=== PATIENT | female | born 1995 | race Caucasian/White ===

== ENCOUNTER 2021-04-02 16:22 | Emergency (ER) | payer BC ==
[2021-04-02 16:30] VITALS: RESP 20; TEMP 99
[2021-04-02 17:12] LABS: Basophils % (A) 0 %; Eosinophils # (A) 0.2 k/uL (0-0.7); Eosinophils % (A) 2 %; HCT 33.1 % (34.0-46.0); HGB 11.3 gm/dL (11.4-16.0); Lymphocytes # (A) 2.3 k/uL (1.0-4.8); Lymphocytes % (A) 20 %; MCH 31.9 pg (25.0-35.0); MCHC 34.1 g/dL (31.0-37.0); MCV 93.7 fL (80.0-100.0); Mean Platelet Volume 7.9; Monocytes # (A) 0.3 k/uL (0-1.0); Monocytes % (A) 3 %; Neutrophils # (A) 8.6 k/uL (1.3-7.7); Neutrophils % (A) 74 %; Platelet Count 254 k/uL (150-450); RBC 3.54 m/uL (3.80-5.40); RDW 13.6 % (11.5-15.5); WBC 11.6 k/uL (3.8-10.6)
[2021-04-02 17:22] LABS: ALT 16 U/L (4-34); AST 23 U/L (14-36); African American GFR (CKD) >90 (>60 ml/min/1.73 sqM); Albumin 4.2 g/dL (3.5-5.0); Alkaline Phosphatase 86 U/L (38-126); Anion Gap 12 mmol/L; Blood Urea Nitrogen 11 mg/dL (7-17); Calcium 9.5 mg/dL (8.4-10.2); Carbon Dioxide 20 mmol/L (22-30); Chloride 108 mmol/L (98-107); Glucose 89 mg/dL (74-99); Non-African American GFR(CKD) >90 (>60 ml/min/1.73 sqM); Sodium 140 mmol/L (137-145); Total Bilirubin 0.2 mg/dL (0.2-1.3); Total Protein 6.8 g/dL (6.3-8.2)
[2021-04-02 17:42] LABS: Appearance,Urine Clear (Clear); Bilirubin,Urine Negative (Negative); Blood,Urine Large (Negative); Color,Urine Yellow; Glucose,Urine (UA) Negative (Negative); Ketones,Urine Negative (Negative); Leukocyte Esterase,Urine Large (Negative); Nitrite,Urine Negative (Negative); PH, Urine 7.5 (5.0-8.0); Protein,Urine Trace (Negative); RBC,Urine >182 /hpf (0-5); Specific Gravity,Urine 1.012 (1.001-1.035); Urobilinogen,Urine <2.0 mg/dL (<2.0); WBC,Urine 69 /hpf (0-5)
--- NOTE | 2021-04-02 17:53 | US ---
EXAMINATION TYPE: US pelvic complete DATE OF EXAM: 04/02/2021 COMPARISON: NONE CLINICAL HISTORY: 2 weeks, increase bleeding/pain. TECHNIQUE: Transabdominal sonographic images of the pelvis were acquired. Transvaginal sonographic images not performed due to patient being 2 weeks EXAM MEASUREMENTS: Uterus: 13.5 x 8.0 x 9.3 cm Endometrial Stripe: 2.7 cm Right Ovary: 2.1 x 1.2 x 1.6 cm Left Ovary: 2.5 x 1.9 x 2.7 cm 1. Uterus: Anteverted 2. Endometrium: Thickened and complex 3. Right Ovary: wnl 4. Left Ovary: wnl Spectral, color and waveform doppler imaging shows good arterial and venous flow within the ovaries ; there is no evidence for ovarian torsion. 5. Bilateral Adnexa: wnl 6. Posterior cul-de-sac: wnl IMPRESSION: 2.7 cm endometrial thickening with small fluid. No definite focal lesion or significant color Doppler abnormality seen to suggest retained product of conception. Findings are nonspecific. Recommend cont inued clinical follow-up and imaging as indicated.
[2021-04-02] MEDS ORDERED: IBUPROFEN 600 MG TAB PO STA (18:01)
--- NOTE | 2021-04-02 18:06 | ED ---
Female Urogenital HPI - General Chief complaint: Vaginal Bleeding Stated complaint: ABD pain/Vag bleeding Time Seen by Provider: 04/02/21 16:50 Source: patient, EMS Mode of arrival: EMS Limitations: no limitations - History of Present Illness Initial comments: Patient is a 25-year-old female presenting to the emergency department via EMS of her complaints of vaginal bleeding and increased lower abdominal cramping today. Patient is currently 2 weeks , normal vaginal delivery at home with a [employer]. She was 38 weeks along, patient did state that the baby was breech, she had some small tears but otherwise no complication. She has been kelly ving some bleeding over the past 2 weeks and then today she thought she had had a bowel movement, sat on toilet and passed a large blood clot. Patient got very concerned and called EMS. She states she is having some lower abdominal cramping that feels like mild contractions however she's been having these ever since she delivered. This is her first . She had 1 ultrasound previously at about 20 weeks along that showed no abnormalities. Patient states her blood type is O+. She denies any fevers or chills, no dysuria, no chest pain or shortness of breath, no recent cough or congestion. She denies any previous abdominal surgeries. Is no further complaints at this time. Upon arr ival to the ER her vitals are stable. Last Menstrual Period: 04/02/21 - Related Data Previous Rx's Medication Instructions Recorded Cephalexin [Keflex] 500 mg PO BID 5 Days #10 cap 04/02/21 Allergies Allergy/AdvReac Type Severity Reaction Status Date / Time No Known Allergies Allergy Verified 04/02/21 16:29 Review of Systems ROS Statement: Those systems with pertinent positive or pertinent negative responses have been documented in the HPI. ROS Other: All systems not noted in ROS Statement are negative. Past Medical History Past Medical History: No Reported History History of Any Multi-Drug Resistant Organisms: None Reported Past Surgical History: No Surgical Hx Reported Past Psychological History: No Psychological Hx Reported Smoking Status: Never smoker Past Alcohol Use History: None Reported General Exam - General Exam Comments Initial Comments: GENERAL: Patient is well-developed and well-nourished. Patient is nontoxic and in mild d istress. HEAD: Atraumatic, normocephalic. EYES: Pupils equal round and reactive to light, extraocular movements intact, sclera anicteric, conjunctiva are normal. Eyelids were unremarkable. ENT: TMs normal, nares patent, oropharynx clear without exudates. Moist mucous membranes. NECK: Normal range of motion, supple without lymphadenopathy or JVD. LUNGS: Unlabored respirations. Breath sounds clear to auscultation bilaterally and equal. No wheezes rales or rhonchi. HEART: Regular rate and rhythm without murmurs, rubs or gallops. ABDOMEN: Soft, mild lower discomfort with palpation, uterus feels soft, consistent with 2 weeks' . Normal active bowel sounds, no guarding, no masses felt. MUSCULOSKELETAL: Normal extremities with adequate strength and normal range of motion, no pitting or edema. No clubbing or cyanosis. NEUROLOGICAL: Patient is alert and oriented x 3. SKIN: Warm, Dry, normal turgor, no rashes or lesions noted. Limitations: no limitations External exam: Present: normal external exam Speculum exam: Present: vaginal bleeding (Mild, no hemorrhage.) By manual exam: Present: normal by manual exam Course Vital Signs 04/02/21 16:25 Temperature 99 F Pulse Rate 91 Respiratory 20 Rate Blood Pressure 125/87 O2 Sat by Pulse 98 Oximetry Medical Decision Making - Medical Decision Making Patient is a 25-year-old female presenting via EMS over passing a large blood clot and lower abdominal cramping. She is 2 weeks . Normal vaginal delivery at home with a [employer] at 38 weeks along. This was her first . Vital signs are stable, lab work shows a normal hemoglobin at 11.3, urine shows large amount of blood, 69 wbc's. Ultrasound of the pelvis shows a 2.7 cm endometrial thickening with small fluid, no definite focal lesion or abnormality to suggest retained products. Recomended follow-up. I did give patient some ibuprofen. We discussed alternating between ibuprofen and Tylenol for her discomfort. She is stable for discharge. Recommend following up with her [employer]. She is agreeable to this. Return parameters were discussed with her and she verbalized understanding. Case discussed with Dr. Fair. - Lab Data Result diagrams: 04/02/21 17:04/02/21 17:01 Lab Results 04/02/21 04/02/21 04/02/21 Range/Units 17:01 17: 17:01 WBC 11.6 H (3.8-10.6) k/uL RBC 3.54 L (3.80-5.40) m/uL Hgb 11.3 L (11.4-16.0) gm/dL Hct 33.1 L (34.0-46.0) % MCV 93.7 (80.0-100.0) fL MCH 31.9 (25.0-35.0) pg MCHC 34.1 (31.0-37.0) g/dL RDW 13.6 (11.5-15.5) % Plt Count 254 (150-450) k/uL MPV 7.9 Neutrophils % 74 % Lymphocytes % 20 % Monocytes % 3 % Eosinophils % 2 % Basophils % 0 % Neutrophils # 8.6 H (1.3-7.7) k/uL Lymphocytes # 2.3 (1.0-4.8) k/uL Monocytes # 0.3 (0-1.0) k/uL Eosinophils # 0.2 (0-0.7) k/uL Basophils # 0.0 (0-0.2) k/uL Sodium 140 (137-145) mmol/L Potassium 4.0 (3.5-5.1) mmol/L Chloride 108 H (98-107) mmol/L Carbon Dioxide 20 L (22-30) mmol/L Anion Gap 12 mmol/L BUN 11 (7-17) mg/dL Creatinine 0.62 (0.52-1.04) mg/dL Est GFR (CKD-EPI)AfAm >90 (>60 ml/min/1.73 sqM) Est GFR (CKD-EPI)NonAf >90 (>60 ml/min/1.73 sqM) Glucose 89 (74-99) mg/dL Calcium 9.5 (8.4-10.2) mg/dL Total Bilirubin 0.2 (0.2-1.3) mg/dL AST 23 (14-36) U/L ALT 16 (4-34) U/L Alkaline Phosphatase 86 (38-126) U/L Total Protein 6.8 (6.3-8.2) g/dL Albumin 4.2 (3.5-5.0) g/dL Urine Color Yellow Urine Appearance Clear (Clear) Urine pH 7.5 (5.0-8.0) Ur Specific [place] 1.012 (1.001-1.035) Urine Protein Trace H (Negative) Urine Glucose (UA) Negative (Negative) Urine Ketones Negative (Negative) Urine Blood Large H (Negative) Urine Nitrite Negative (Negative) Urine Bilirubin Negative (Negative) Urine Urobilinogen <2.0 (<2.0) mg/dL Ur Leukocyte Esterase Large H (Negative) Urine RBC >182 H (0-5) /hpf Urine WBC 69 H (0-5) /hpf Blood Type Blood Type Recheck Bld Type Recheck Status 04/02/21 Range/Units 17:01 WBC (3.8-10.6) k/uL RBC (3.80-5.40) m/uL Hgb (11.4-16.0) gm/dL Hct (34.0-46.0) % MCV (80.0-100.0) fL MCH (25.0-35.0) pg MCHC (31.0-37.0) g/dL RDW (11.5-15.5) % Plt Count (150-450) k/uL MPV Neutrophils % % Lymphocytes % % Monocytes % % Eosinophils % % Basophils % % Neutrophils # (1.3-7.7) k/uL Lymphocytes # (1.0-4.8) k/uL Monocytes # (0-1.0) k/uL Eosinophils # (0-0.7) k/uL Basophils # (0-0.2) k/uL Sodium (137-145) mmol/L Potassium (3.5-5.1) mmol/L Chloride (98-107) mmol/L Carbon Dioxide (22-30) mmol/L Anion Gap mmol/L BUN (7-17) mg/dL Creatinine (0.52-1.04) mg/dL Est GFR (CKD-EPI)AfAm (>60 ml/min/1.73 sqM) Est GFR (CKD-EPI)NonAf (>60 ml/min/1.73 sqM) Glucose (74-99) mg/dL Calcium (8.4-10.2) mg/dL Total Bilirubin (0.2-1.3) mg/dL AST (14-36) U/L ALT (4-34) U/L Alkaline Phosphatase (38-126) U/L Total Protein (6.3-8.2) g/dL Albumin (3.5-5.0) g/dL Urine Color Urine Appearance (Clear) Urine pH (5.0-8.0) Ur Specific [place] (1.001-1.035) Urine Protein (Negative) Urine Glucose (UA) (Negative) Urine Ketones (Negative) Urine Blood (Negative) Urine Nitrite (Negative) Urine Bilirubin (Negative) Urine Urobilinogen (<2.0) mg/dL Ur Leukocyte Esterase (Negative) Urine RBC (0-5) /hpf Urine WBC (0-5) /hpf Blood Type O Positive Blood Type Recheck No Previous Record Bld Type Recheck Status [facility] ONLY Disposition Clinical Impression: bleeding, Bilateral lower abdominal cramping, UTI (urinary tract infection) Disposition: HOME SELF-CARE Condition: Stable Instructions (If sedation given, give patient instructions): Bleeding (ED) Additional Instructions: Please return to the Emergency Department if symptoms worsen or any other concerns. Follow-up with your [employer]. Continue to drink plenty of fluids. Alternate between Tylenol and Motrin for discomfort. Take antibiotics as prescribed. Prescriptions: Cephalexin [Keflex] 500 mg PO BID 5 Days #10 cap Is patient prescribed a controlled substance at d/c from ED?: No Referrals: None,Stated [Primary Care Provider] - 1-2 days Time of Disposition: 18:06
[2021-04-02 18:16] VITALS: BP 131/72; PULSE 96
== END 2021-04-02 18:37 | disposition home or self-care (01) ==
LOC: EC 16:22
DX: O72.2 Delayed and secondary postpartum hemorrhage (principal); O86.20 Urinary tract infection following delivery, unspecified
CPT/HCPCS: 36415; 76856; 80053; 81001; 85025; 86900; 86901; 87086; 93975; 99285